=== PATIENT | female | born 1935 | race Caucasian/White ===

== ENCOUNTER 2016-12-31 10:05 | Outpatient (CLI) | payer MEDICARE, BC ==
--- NOTE | 2016-12-31 12:37 | CT ---
CT HEAD WITHOUT IV CONTRAST 12/31/2016 HISTORY: Follow-up subdural hemorrhage. The patient states he has been having seizures. Dementia. COMPARISON: 10/31/2016 FINDINGS: Previously seen small left subdural hemorrhage has resolved. No intraparenchymal or extraaxial hemo rrhage is seen on today's exam. Chronic small vessel ischemic changes and cerebral volume loss are again present. There has been no other interval change compared to the prior exam. IMPRESSION: 1. Resolution of left subdural hematoma. No intraparenchymal or extraaxial hemorrhage is seen on to day's exam. 2. Stable chronic small vessel ischemic changes and cerebral volume loss. POS: [facility]
== END 2016-12-31 10:06 | disposition home or self-care (01) ==
LOC: TBSIIMAG 10:05
PROVIDERS: ATTEND Neurological Surgery
DX: I62.00 Nontraumatic subdural hemorrhage, unspecified (principal); I67.82 Cerebral ischemia
CPT/HCPCS: 70450